=== PATIENT | female | born 1990 | race Caucasian/White ===

== ENCOUNTER 2024-11-12 21:35 | Emergency (ER) | payer BC, SELFPAY ==
[2024-11-12 21:38] VITALS: BP 150/91
--- NOTE | 2024-11-12 23:13 | ED.GENMED ---
History of Present Illness
General
Chief Complaint: Vaginal Bleeding
Source: patient
Exam Limitations: none
Time Seen by Provider: 11/12/24 22:44
Nursing documentation reviewed up to this point in time: agreed with
History of Present Illness
History of Present Illness:
34-year-old female past medical history of asthma, anxiety, presents emergency department today with concerns of vaginal bleeding in first trimester . Patient states that this all started around 4 days ago with pelvic cramping. Patient
started to notice some bleeding around 2 days ago. Patient states that she notices the blood with wiping. She also notes brown discharge as well. She denies any fainting spells, any chest pain, any shortness of breath, any dizziness or
lightheadedness. Patient states this was confirmed by home test and has an appointment with her OB/scheduled for November 27. She believes her blood type is O+.
Past History
Past History
ED Past Medical History: Asthma
ED Past Surgical History: None
Social History
Tobacco: Non-smoker
Alcohol: Occasional
Drug: None
Personal: Single
Living: with family
Employment: Student
Review of Systems
Review of Systems
All Other Systems: ROS reviewed and negative except as documented in HPI and ROS
Phy Exam
Physical Exam
Physical Exam:
General: Patient is well appearing and in no acute distress; non-toxic
Skin: Warm and dry, no rashes or lesions
Head: Normocephalic, atraumatic
Eyes: Sclera non-icteric. EOMs intact.
Cardiac: Regular rate and rhythm, no murmurs
Pulm: Normal respiratory effort
Abdomen: No abdominal tenderness to palpation
Neuro: CN II-XII intact, no focal neurologic deficits.
Psychiatric: Appropriate mood and affect.
Course
Orders/Labs/Results
Orders:
Orders
11/12/24 21:42
US W Transvaginal Urgent
Reason For Exam: 7 weeks preg spotting/bleeding
11/12/24 22:46
Test Result ONCE
11/12/24 23:29
Type+Screen Urgent
Beta HCG Quantitative Urgent
Comment: ADD ON
Complete Blood Count/With Diff Urgent
Comprehensive Metabolic Panel Urgent
HCG, Serum Qualitative Screen Urgent
Urinalysis Urgent
Date Specimen was Collected: 11/12/24
Time Specimen was Collected: 23:15
Urine Microscopic Urgent
Date Specimen was Collected: 11/12/24
Time Specimen was Collected: 23:15
11/13/24 00:34
Add On- LAB Urgent
Tests Added?: hcg quant
11/13/24 01:28
ABO2 Urgent
BBK Wristband Number:
Associate notified that ABO2 has been ordered: [id number]
Date: 11/12/24
Time: 23:55
Teaching [employer]ists ID: [id number]
Abnormal Lab Results
11/12/24
23:29
WBC 11.5 H 10^3/uL
(4.8-10.8)
Absolute Neuts (auto) 7.1 H 10^3/uL
(1.4-6.5)
Absolute Monos (auto) 0.8 H 10^3/uL
(0.1-0.6)
Glucose 108 H mg/dl
(70-99)
Urine Occult Blood 4+ A
(Negative)
Ur Leukocyte Esterase 1+ A
(Negative)
Urine RBC 3-6 A /HPF
(0-2)
Urine WBC 21-25 A /HPF
(0-5)
Urine Bacteria Few A
(Negative)
11/12/24 23:29
11/12/24 23:29
Vital Signs
Initial and Last Documented VS:
Initial Vital Signs
Pulse Resp BP Pulse Ox
84 15 150/91 100
11/12/24 21:38 11/12/24 21:38 11/12/24 21:38 11/12/24 21:38
Last Documented Vital Signs
Pulse Resp BP Pulse Ox
81 20 117/67 99
11/13/24 02:00 11/13/24 02:00 11/12/24 23:49 11/13/24 02:00
MDM/Problems Addressed
Differential Diagnosis Includes:
Differentials include ectopic , threatened miscarriage, implantation bleeding
MDM/Problems Addressed:
34-year-old female presents emergency department today with concerns of vaginal bleeding in early . She is O+. She denies any burning with urination. She denies any fevers or chills. She was found to have a live intrauterine
with no heartbeat. She also found to have a beta-hCG of 3646.80. Discussed how early loss cannot be excluded and how she needs to follow-up with her [facility] to have serial hCGs. Patient expressed understanding. Patient stable for
discharge.
Chronic conditions affecting care:
Asthma, anxiety,
*Pulse Oximetry
Patient hypoxic: no
*Critical Care Note
Total Time (30-74mins, 75-104mins- exclusive of procedures): Not Applicable
Data Reviewed
Review of Other/Old Records Reveals: Records (Reviewed ER physician augmentation from 01/14/2018, patient seen for right lower quadrant pain and was found to have colitis)
ED Attending Note
-
Portions of this chart may have been created with voice recognition software.� Occasional wrong word or��sound alike� substitutions may have occurred due to the inherent limitations of voice recognition software.
Discharge Plan
Departure
Patient Disposition: Home (Routine Discharge)
Date of Disposition: 11/13/24
Time of Disposition: 02:24
Patient with high blood pressure during this ER visit?: Yes
Condition: Good
Discharge Problem:
Vaginal bleeding affecting early
Instructions: Bleeding in early , BLOOD PRESSURE
Prescriptions:
No Action
alprazolam 0.5 MG tablet
0.5 mg PO Q6HPRN PRN (Reason: anxiety)
albuterol sulfate 1 PUFF HFA aerosol inhaler
2 puff inhalation PRN PRN (Reason: SOB)
escitalopram oxalate 10 MG tablet
10 mg PO DAILY
norgestimate-ethinyl estradiol [Tri-Previfem (28)] 1 TAB tablet
1 tab PO DAILY
fluticasone propion-salmeterol [Advair Diskus] 1 EACH blister with device
1 ea IH BID
fexofenadine-pseudoephedrine [Sharri-D 24 Hour] 1 EACH tablet extended release 24 hr
1 ea PO DAILY
Referrals:
Mariely Segal NP [Family Provider] -
Activity Restrictions/Additional Instructions:
Your ultrasound today showed findings compatible with a live intrauterine of approximately 6 weeks and 1 day. No heart tones were identified. Your hCG level today was 3646.80.
It is important to make sure this level is doubling and is important to get serial hCGs. Please call your [facility] tomorrow morning and please see that you are seen in the emergency department.
PLEASE RETURN EMERGENCY DEPARTMENT SHOULD YOU HAVE PERSISTENT BLEEDING ASSOCIATED WITH DIZZINESS, LIGHTHEADEDNESS, ABDOMINAL PAIN, INTRACTABLE NAUSEA OR VOMITING, CHEST PAIN, SHORTNESS OF BREATH, OR ANY OTHER SIGNS OR SYMPTOMS WORRISOME TO YOU.
Interventions
Interventions:
*Risk Screen - Suicide Last Done: 11/12/24 21:38
*General Assessment Last Done: 11/12/24 21:38
*Neglect/Abuse Screening Last Done: 11/12/24 21:38
*ED- Fall Risk Assessment Last Done: 11/13/24 02:54
*ED COVID-19 Vaccine History Last Done: 11/13/24 02:54
*Nursing Disposition Last Done: 11/13/24 02:54
ED-Female Genitourinary Assessment Last Done: 11/12/24 23:49
Discharge Date and Time
Discharge Date/Time: 11/13/24 02:55
Print Language: GEORGIAN
[2024-11-12 23:41] LABS: Urine Albumin Negative (Neg - Trace); Urine Bilirubin Negative (Negative); Urine Character Clear (Clear); Urine Color Yellow; Urine Glucose Negative (Negative); Urine Ketone Negative (Negative); Urine Leukocyte 1+ (Negative); Urine Nitrite Negative (Negative); Urine Occult Blood 4+ (Negative); Urine Urobilinogen Negative (Neg - 1+); Urine pH 6.5 (5.0-9.0)
[2024-11-12 23:45] LABS: % Basophils 0.6 % (0-2); % Eosinophils 3.7 % (0-6); % Immature Granulocytes 0.3 % (0-0.5); % Monocytes 6.9 % (1.7-9.3); % Neutrophils 61.5 % (42.2-75.2); Absolute Basophils 0.1 10^3/uL (0-0.2); Absolute Eosinophils 0.4 10^3/uL (0-0.7); Absolute Lymphocytes 3.1 10^3/uL (1.2-3.4); Absolute Monocytes 0.8 10^3/uL (0.1-0.6); Absolute Neutrophils 7.1 10^3/uL (1.4-6.5); Hematocrit 40.5 % (37.0-47.0); Hemoglobin 14.1 g/dL (12.0-16.0); Mean Corp Hgb Conc. 34.8 g/dL (33.0-37.0); Mean Corpuscular Hgb 30.9 pg (27.0-31.0); Mean Corpuscular Volume 88.8 fL (81.0-99.0); Nucleated Red Blood Cells % 0 %; Platelet Count 348 10^3/uL (130-400); Red Blood Cell Count 4.56 10^6/uL (4.20-5.40); Red Cell Dist. Width 12.8 % (11.5-14.5); White Blood Cell Count 11.5 10^3/uL (4.8-10.8)
[2024-11-12 23:48] VITALS: BMI 26.1
[2024-11-12 23:49] VITALS: BP 117/67
[2024-11-12 23:52] LABS: HCG, Serum Qualitative Screen Positive
[2024-11-12 23:58] LABS: ALT (SGPT) 16 U/L (0-35); AST (SGOT) 18 U/L (14-36); Albumin 4.8 g/dl (3.5-5.0); Alkaline Phosphatase 75 U/L (38-126); Blood Urea Nitrogen 12 mg/dl (7-17); Calcium 10.2 mg/dl (8.4-10.2); Carbon Dioxide 25 mmol/L (22-30); Chloride 107 mmol/L (98-107); Estimated Creatinine Clearance 96 ml/min; Glucose 108 mg/dl (70-99); Potassium 3.8 mmol/L (3.5-5.1); Sodium 142 mmol/L (135-145); Total Bilirubin 0.8 mg/dl (0.2-1.3); Total Protein 7.8 g/dl (6.3-8.2); eGFR > 60.00
[2024-11-13 01:00] LABS: Urine Squamous Cell >30 /LPF (Few)
[2024-11-13 01:01] LABS: Urine Bacteria Few (Negative); Urine White Cell 21-25 /HPF (0-5)
== END 2024-11-13 02:55 | disposition home or self-care (01) ==
LOC: EMR 21:35
PROVIDERS: Physician Assistant; EMERGENCY PHYSICIAN Student in an Organized Health Care Education/Training Program; FAMILY PHYSICIAN Internal Medicine; REFERRING PHYSICIAN Obstetrics & Gynecology
DX: O20.9 Hemorrhage in early pregnancy, unspecified (principal); O99.340 Other mental disorders complicating pregnancy, unspecified trimester; F41.9 Anxiety disorder, unspecified; O99.891 Other specified diseases and conditions complicating pregnancy; J45.909 Unspecified asthma, uncomplicated
CPT/HCPCS: 99284; 76801; 76817; 80053; 81003; 81015; 84702; 84703; 85025; 86850; 86900; 86901